=== PATIENT | female | born 1965 | race Caucasian/White ===

== ENCOUNTER 2019-06-20 10:28 | Emergency (ER) | payer BC ==
[~2019-06-20] VITALS: Ht 154.9 cm; Wt 71.9 kg
--- NOTE | 2019-06-20 10:51 | NUR ---
PT STATED SHE HAS HAD 3 DAYS OF WATERY STOOL. VOMITTING STARTED TODAY. STATES HAS TAKEN ABX 3 MONTHS AGO. STARTED ON NEW HTN, HDL, AND DIABETES MEDS. PATIENT IN BED. BEDSIDE. CALL LIGHT WITHIN REACH
[2019-06-20] MEDS ORDERED: ONDANSETRON 2MG/ML, 2ML ONE (11:00)
[2019-06-20] MEDS ORDERED: SODIUM CHLORIDE 0.9% 1,000ML IVBOLUS ONE ×2 (11:00→13:00)
[2019-06-20] MEDS ORDERED: SODIUM CHLORIDE FLUSH 10ML SYR IVF ONE (11:00)
[2019-06-20] MEDS ORDERED: ONDANSETRON 2MG/ML, 2ML IVPush ONE (11:00)
[2019-06-20] MEDS ORDERED: INSU100V8 SQ (11:26)
[2019-06-20] MEDS ORDERED: METF500T17 PO (11:26)
[2019-06-20] MEDS ORDERED: LISI40TA PO (11:26)
[2019-06-20] MEDS ORDERED: DULA1.5P IM (11:26)
[2019-06-20 11:34] LABS: BASOPHILS % (AUTO) 0 % (0-1); EOSINOPHILS # (AUTO) 0.02 x10^3/uL (0-0.4); EOSINOPHILS % (AUTO) 0 % (1-7); LYMPHOCYTES # (AUTO) 1.77 x10^3/uL (1-3.4); LYMPHOCYTES % (AUTO) 18 % (22-44); MD NO; MEAN CORPUSCULAR HEMOGLOBIN 25.7 pg (27.0-34.8); MEAN CORPUSCULAR VOLUME 77.9 fL (80-100); MEAN PLATELET VOLUME 8.7 fL (7.4-10.4); MONOCYTES % (AUTO) 2 % (2-9); NEUTROPHILS # (AUTO) 7.75 x10^3/uL (1.8-6.8); NEUTROPHILS % (AUTO) 80 % (42-75); PLATELET COUNT 225 x10^3/uL (130-400); RED BLOOD COUNT 5.44 x10^6/uL (3.82-5.3); RED CELL DISTRIBUTION WIDTH 13.1 % (9.6-15.2)
[2019-06-20 11:46] LABS: ANION GAP 8 mmol/L (5-15); CALCIUM 9.6 mg/dL (8.5-10.1); CHLORIDE 109 mmol/L (98-107); CREATININE 1.08 mg/dL (0.55-1.02)
[2019-06-20 11:47] LABS: ALANINE AMINOTRANSFERASE 26 U/L (12-78); ALBUMIN 3.8 g/dL (3.4-5.0)
[2019-06-20 11:49] LABS: ALKALINE PHOSPHATASE 99 U/L (45-117); BILIRUBIN,TOTAL 0.3 mg/dL (0.2-1.0); TOTAL PROTEIN 8.5 g/dL (6.4-8.2)
--- NOTE | 2019-06-20 12:08 | NUR ---
NEED A STOOL SAMPLE. PT STATES SHE DOES NOT NEED TO USE THE RESTROOM FOR A STOOL SAMPLE. PT IS IN HOSPITAL BED. BEDSIDE.
[2019-06-20 13:07] VITALS: BP 136/78
== END 2019-06-20 13:25 | disposition home or self-care (01) ==
LOC: ED 11:15
DX: R11.2 Nausea with vomiting, unspecified (principal); R19.7 Diarrhea, unspecified; E86.0 Dehydration; E86.9 Volume depletion, unspecified; I10 Essential (primary) hypertension; E11.9 Type 2 diabetes mellitus without complications; E78.00 Pure hypercholesterolemia, unspecified
CPT/HCPCS: 36415; 80053; 82962; 83690; 85025; 93005; 96361; 96374; 99284; J2405; J7030

== ENCOUNTER 2019-06-24 03:34 | Inpatient (IN) | payer BC ==
[~2019-06-24] VITALS: Ht 154.9 cm; Wt 68.3 kg
[~2019-06-24 03:34] MED LIST: DULA1.5P IM; INSU100V8 SQ; LISI40TA PO; METF500T17 PO
[2019-06-24] MEDS ORDERED: SODIUM CHLORIDE 0.9% 1,000 ML IV ONE (03:38)
--- NOTE | 2019-06-24 03:52 | NUR ---
angélica schreiber with c/o vomiting blood was seen here saturday for same
[2019-06-24] MEDS ORDERED: PANTOPRAZOLE 40 MG IV ONE (03:55)
[2019-06-24] MEDS ORDERED: ONDANSETRON 2MG/ML, 2ML ONE (03:55)
[2019-06-24] MEDS ORDERED: PROMETHAZINE 25 MG/ML, 1ML ONE (03:56)
[2019-06-24] MEDS ORDERED: SODIUM CHLORIDE FLUSH 10ML SYR IVF ONE (04:00)
[2019-06-24] MEDS ORDERED: ONDANSETRON 2MG/ML, 2ML IVPush ONE (04:00)
[2019-06-24] MEDS ORDERED: PROMETHAZINE 25 MG/ML, 1ML IM ONE (04:00)
[2019-06-24] MEDS ORDERED: PANTOPRAZOLE 40 MG IV IVPush ONE (04:00)
[2019-06-24] MEDS: PANTOPRAZOLE 80 MG in SODIUM CHLORIDE 0.9% 100 ML IV SCH ×3 (04:21→21:51)
[2019-06-24 04:27] LABS: BASOPHILS # (AUTO) 0.03 x10^3/uL (0-0.1); BASOPHILS % (AUTO) 0 % (0-1); EOSINOPHILS % (AUTO) 0 % (1-7); LYMPHOCYTES # (AUTO) 1.28 x10^3/uL (1-3.4); LYMPHOCYTES % (AUTO) 9 % (22-44); MD NO; MEAN CORPUSCULAR HEMOGLOBIN 25.4 pg (27.0-34.8); MEAN CORPUSCULAR HGB CONC 32.4 g/dL (32.4-35.8); MEAN CORPUSCULAR VOLUME 78.4 fL (80-100); MEAN PLATELET VOLUME 8.7 fL (7.4-10.4); MONOCYTES # (AUTO) 0.36 x10^3/uL (0.2-0.8); MONOCYTES % (AUTO) 3 % (2-9); NEUTROPHILS # (AUTO) 11.97 x10^3/uL (1.8-6.8); NEUTROPHILS % (AUTO) 88 % (42-75); PLATELET COUNT 211 x10^3/uL (130-400); RED BLOOD COUNT 5.64 x10^6/uL (3.82-5.3); RED CELL DISTRIBUTION WIDTH 13.4 % (9.6-15.2)
[2019-06-24 04:37] LABS: ALANINE AMINOTRANSFERASE 25 U/L (12-78); ALBUMIN 3.7 g/dL (3.4-5.0); ANION GAP 18 mmol/L (5-15); CALCIUM 9.9 mg/dL (8.5-10.1); CHLORIDE 103 mmol/L (98-107); CREATININE 1.05 mg/dL (0.55-1.02)
[2019-06-24 04:38] LABS: INTERNATIONAL NORMALIZED RATIO 1.11 (0.93-1.1); PROTHROMBIN TIME 11.6 Seconds (9.6-11.5)
[2019-06-24 04:39] LABS: ALKALINE PHOSPHATASE 97 U/L (45-117); TOTAL PROTEIN 8.5 g/dL (6.4-8.2)
[2019-06-24] MEDS ORDERED: METOCLOPRAMIDE 5 MG/ML, 2ML IVPush ONE (05:00)
[2019-06-24] MEDS ORDERED: METOCLOPRAMIDE 5 MG/ML, 2ML ONE (05:09)
--- NOTE | 2019-06-24 05:17 | NUR ---
UNABLE TO USE BR
--- NOTE | 2019-06-24 05:17 | NUR ---
PT UP TO BSC AT THIS TIME
--- NOTE | 2019-06-24 05:19 | NUR ---
PT CONTINUES TO DRY HEAVE AND BRING UP DARK BROWN EMISIS
--- NOTE | 2019-06-24 05:27 | NUR ---
pt to ct at this time
[2019-06-24] MEDS ORDERED: OMNIPAQUE 350 MG/ML, 100ML BOTTLE ONE (05:43)
--- NOTE | 2019-06-24 06:08 | NUR ---
pt resting comfortably at this time
--- NOTE | 2019-06-24 06:32 | NUR ---
report to daron awaiting ct read for admit to floor
[2019-06-24 07:17] VITALS: BP 151/83
[2019-06-24] MEDS ORDERED: MAGNESIUM SULFATE 3 GM in SODIUM CHLORIDE 0.9% 100 ML IV ONE (09:30)
[2019-06-24] MEDS ORDERED: morphine SULFATE 10 MG/ML, 1ML IVPush PRN (10:30)
[2019-06-24] MEDS ORDERED: hydrALAzine 20 MG/ML, 1ML IVPush PRN (10:30)
[2019-06-24 10:33] LABS: LDL/HDL RATIO 3.4 (0.5-3.0)
[2019-06-24] MEDS: SODIUM CHLORIDE 0.9% 1,000 ML IV SCH (12:34)
[2019-06-24] MEDS: CEFTRIAXONE PMX 2GM/50ML 50 ML IV SCH (12:34)
[2019-06-24] MEDS: ONDANSETRON 2MG/ML, 2ML IVPush PRN ×2 (12:35→19:15)
[2019-06-24] MEDS: PANTOPRAZOLE 40 MG IV IVPush SCH ×2 (12:35→21:36)
[2019-06-24 12:36] LABS: HEMOGLOBIN A1C 11.2 % (4.2-6.3)
[2019-06-24] MEDS: LISINOPRIL 40 MG TABLET PO SCH (12:47)
[2019-06-24] MEDS: METRONIDAZOLE PMX 500MG/100ML 100 ML IV SCH ×2 (14:00→21:36)
[2019-06-24] MEDS: INSULIN LISPRO 100 UNITS/ML, PEN SQ-INSULIN SCH ×3 (14:01→21:36)
[2019-06-24 14:15] VITALS: BP 141/87
[2019-06-24 19:04] VITALS: BP 151/91
[2019-06-24] MEDS: PROMETHAZINE 25 MG/ML, 1ML IM PRN (21:37)
[2019-06-25] MEDS: SODIUM CHLORIDE 0.9% 1,000 ML IV SCH ×2 (00:06→08:56)
[2019-06-25 00:41] VITALS: BP 161/97
[2019-06-25 02:47] LABS: CLOSTRIDIUM DIFFICILE ANTIGEN POSITIVE; CLOSTRIDIUM DIFFICILE TOXIN NEGATIVE (Negative)
[2019-06-25] MEDS: ONDANSETRON 2MG/ML, 2ML IVPush PRN ×3 (04:55→22:29)
[2019-06-25 05:14] LABS: BASOPHILS # (AUTO) 0.06 x10^3/uL (0-0.1); BASOPHILS % (AUTO) 0 % (0-1); EOSINOPHILS # (AUTO) 0.15 x10^3/uL (0-0.4); EOSINOPHILS % (AUTO) 1 % (1-7); LYMPHOCYTES # (AUTO) 2.05 x10^3/uL (1-3.4); LYMPHOCYTES % (AUTO) 15 % (22-44); MD NO; MEAN CORPUSCULAR HEMOGLOBIN 25.8 pg (27.0-34.8); MEAN CORPUSCULAR HGB CONC 32.4 g/dL (32.4-35.8); MEAN CORPUSCULAR VOLUME 79.6 fL (80-100); MEAN PLATELET VOLUME 8.9 fL (7.4-10.4); MONOCYTES # (AUTO) 0.65 x10^3/uL (0.2-0.8); MONOCYTES % (AUTO) 5 % (2-9); NEUTROPHILS # (AUTO) 10.39 x10^3/uL (1.8-6.8); NEUTROPHILS % (AUTO) 78 % (42-75); PLATELET COUNT 199 x10^3/uL (130-400); RED BLOOD COUNT 4.72 x10^6/uL (3.82-5.3); RED CELL DISTRIBUTION WIDTH 13.1 % (9.6-15.2)
[2019-06-25 05:16] LABS: ALBUMIN 2.9 g/dL (3.4-5.0); ANION GAP 8 mmol/L (5-15); CALCIUM 8.9 mg/dL (8.5-10.1); CHLORIDE 109 mmol/L (98-107)
[2019-06-25 05:24] LABS: ALANINE AMINOTRANSFERASE 17 U/L (12-78); ALKALINE PHOSPHATASE 79 U/L (45-117); BILIRUBIN,TOTAL 0.7 mg/dL (0.2-1.0); CHOL/HDL RATIO 3.7; CHOLESTEROL, TOTAL 176 mg/dL (140-239); CREATININE 0.66 mg/dL (0.55-1.02); HDL CHOL % 27 % (28-40); HDL CHOLESTEROL (DIRECT) 47 mg/dL (40-60); LDL CHOLESTEROL,CALCULATED 106 mg/dL (54-169); LDL/HDL RATIO 2.3 (0.5-3.0); TOTAL PROTEIN 7.1 g/dL (6.4-8.2); TRIGLYCERIDES 114 mg/dL (50-200); VLDL CHOLESTEROL 23 mg/dL (0-25)
[2019-06-25 05:29] LABS: MICROSCOPIC AUTO
[2019-06-25 05:37] LABS: CULTURE INDICATED? YES
[2019-06-25] MEDS: METRONIDAZOLE PMX 500MG/100ML 100 ML IV SCH ×3 (06:17→22:34)
[2019-06-25] MEDS: INSULIN LISPRO 100 UNITS/ML, PEN SQ-INSULIN SCH ×5 (07:00→21:00)
[2019-06-25] MEDS ORDERED: POTASSIUM PHOSPHATE 44 MEQ in SODIUM CHLORIDE 0.9% 500 ML IV ONE (08:30)
[2019-06-25] MEDS: PANTOPRAZOLE 80 MG in SODIUM CHLORIDE 0.9% 100 ML IV SCH (08:44)
[2019-06-25] MEDS: PROMETHAZINE 25 MG/ML, 1ML IM PRN (08:56)
[2019-06-25] MEDS: PANTOPRAZOLE 40 MG IV IVPush SCH ×2 (08:56→22:35)
[2019-06-25] MEDS: LISINOPRIL 40 MG TABLET PO SCH (08:57)
[2019-06-25 09:11] VITALS: BP 171/100
[2019-06-25 10:25] LABS: HEMOGLOBIN A1C 10.8 % (4.2-6.3)
[2019-06-25] MEDS: CEFTRIAXONE PMX 2GM/50ML 50 ML IV SCH (11:20)
[2019-06-25] MEDS ORDERED: LORazepam 2 MG/ML, 1ML IVPush ONE (12:00)
[2019-06-25 13:43] VITALS: BP 137/85
[2019-06-25 18:51] VITALS: BP 144/88
[2019-06-25] MEDS: INSULIN GLARGINE 100 UNITS/ML, PEN SQ-INSULIN SCH (21:19)
[2019-06-26 01:37] VITALS: BP 148/85
[2019-06-26] MEDS: METOCLOPRAMIDE 5 MG/ML, 2ML IVPush PRN ×2 (03:08→10:48)
[2019-06-26] MEDS: ONDANSETRON 2MG/ML, 2ML IVPush PRN (04:42)
[2019-06-26 05:51] LABS: BASOPHILS # (AUTO) 0.04 x10^3/uL (0-0.1); BASOPHILS % (AUTO) 0 % (0-1); EOSINOPHILS # (AUTO) 0.11 x10^3/uL (0-0.4); EOSINOPHILS % (AUTO) 1 % (1-7); LYMPHOCYTES # (AUTO) 2.01 x10^3/uL (1-3.4); LYMPHOCYTES % (AUTO) 17 % (22-44); MD NO; MEAN CORPUSCULAR HEMOGLOBIN 25.5 pg (27.0-34.8); MEAN CORPUSCULAR HGB CONC 31.8 g/dL (32.4-35.8); MEAN CORPUSCULAR VOLUME 80.1 fL (80-100); MONOCYTES # (AUTO) 0.53 x10^3/uL (0.2-0.8); MONOCYTES % (AUTO) 5 % (2-9); NEUTROPHILS # (AUTO) 9.11 x10^3/uL (1.8-6.8); NEUTROPHILS % (AUTO) 77 % (42-75); PLATELET COUNT 202 x10^3/uL (130-400); RED CELL DISTRIBUTION WIDTH 13.2 % (9.6-15.2)
[2019-06-26 06:00] LABS: ANION GAP 10 mmol/L (5-15); CALCIUM 8.8 mg/dL (8.5-10.1); CHLORIDE 107 mmol/L (98-107); CREATININE 0.56 mg/dL (0.55-1.02)
[2019-06-26] MEDS: METRONIDAZOLE PMX 500MG/100ML 100 ML IV SCH ×3 (06:18→22:12)
[2019-06-26] MEDS: INSULIN LISPRO 100 UNITS/ML, PEN SQ-INSULIN SCH ×4 (07:00→21:00)
[2019-06-26 07:31] VITALS: BP 156/90
[2019-06-26] MEDS: LISINOPRIL 40 MG TABLET PO SCH (07:50)
[2019-06-26] MEDS: PANTOPRAZOLE 40 MG IV IVPush SCH ×2 (07:50→20:31)
[2019-06-26] MEDS ORDERED: POTASSIUM CHLORIDE 20 MEQ TAB.ER.PRT PO ONE (09:30)
[2019-06-26] MEDS: CEFTRIAXONE PMX 2GM/50ML 50 ML IV SCH (10:48)
[2019-06-26] MEDS: SODIUM CHLORIDE 0.9% 1,000 ML IV SCH (10:49)
[2019-06-26] MEDS ORDERED: POTASSIUM PHOSPHATE 22 MEQ in SODIUM CHLORIDE 0.9% 250 ML IV ONE (11:30)
[2019-06-26] MEDS ORDERED: MAGNESIUM SULFATE PMX 2GM/50ML 50 ML IV ONE (11:30)
[2019-06-26] MEDS ORDERED: PROMETHAZINE 12.5 MG SUPP PR PRN (11:30)
[2019-06-26] MEDS: METOCLOPRAMIDE 5 MG/ML, 2ML IVPush SCH ×3 (11:30→20:31)
[2019-06-26] MEDS ORDERED: POTASSIUM CHLORIDE 40 MEQ in SODIUM CHLORIDE 0.9% 500 ML IV ONE (12:00)
[2019-06-26 13:00] VITALS: BP 165/96
[2019-06-26 19:36] VITALS: BP 158/95
[2019-06-26] MEDS: INSULIN GLARGINE 100 UNITS/ML, PEN SQ-INSULIN SCH (20:32)
[2019-06-27 01:42] VITALS: BP 162/95
[2019-06-27] MEDS: METOCLOPRAMIDE 5 MG/ML, 2ML IVPush SCH ×4 (02:35→22:23)
[2019-06-27] MEDS: METRONIDAZOLE PMX 500MG/100ML 100 ML IV SCH ×3 (05:36→22:23)
[2019-06-27 06:03] LABS: BASOPHILS # (AUTO) 0.05 x10^3/uL (0-0.1); BASOPHILS % (AUTO) 1 % (0-1); EOSINOPHILS # (AUTO) 0.12 x10^3/uL (0-0.4); EOSINOPHILS % (AUTO) 1 % (1-7); LYMPHOCYTES # (AUTO) 2.26 x10^3/uL (1-3.4); LYMPHOCYTES % (AUTO) 22 % (22-44); MD NO; MEAN CORPUSCULAR HEMOGLOBIN 25.5 pg (27.0-34.8); MEAN CORPUSCULAR HGB CONC 31.9 g/dL (32.4-35.8); MEAN PLATELET VOLUME 8.8 fL (7.4-10.4); MONOCYTES # (AUTO) 0.57 x10^3/uL (0.2-0.8); MONOCYTES % (AUTO) 6 % (2-9); NEUTROPHILS # (AUTO) 7.22 x10^3/uL (1.8-6.8); NEUTROPHILS % (AUTO) 71 % (42-75); PLATELET COUNT 216 x10^3/uL (130-400); RED BLOOD COUNT 4.71 x10^6/uL (3.82-5.3); RED CELL DISTRIBUTION WIDTH 13.5 % (9.6-15.2)
[2019-06-27 06:15] LABS: ALANINE AMINOTRANSFERASE 15 U/L (12-78); ALBUMIN 2.5 g/dL (3.4-5.0); ANION GAP 7 mmol/L (5-15); CALCIUM 8.7 mg/dL (8.5-10.1); CHLORIDE 105 mmol/L (98-107); CREATININE 0.46 mg/dL (0.55-1.02)
[2019-06-27 06:17] LABS: ALKALINE PHOSPHATASE 65 U/L (45-117); BILIRUBIN,TOTAL 0.4 mg/dL (0.2-1.0); TOTAL PROTEIN 6.9 g/dL (6.4-8.2)
[2019-06-27] MEDS: INSULIN LISPRO 100 UNITS/ML, PEN SQ-INSULIN SCH ×4 (07:00→21:00)
[2019-06-27] MEDS: PANTOPRAZOLE 40 MG IV IVPush SCH ×2 (07:28→22:23)
[2019-06-27] MEDS: LISINOPRIL 40 MG TABLET PO SCH (07:28)
[2019-06-27] MEDS: SODIUM CHLORIDE 0.9% 1,000 ML IV SCH ×2 (07:28→22:23)
[2019-06-27 07:31] VITALS: BP 152/95
[2019-06-27 07:44] VITALS: BP 150/90
[2019-06-27] MEDS: CEFTRIAXONE PMX 2GM/50ML 50 ML IV SCH (10:52)
[2019-06-27] MEDS ORDERED: MAGNESIUM SULFATE PMX 2GM/50ML 50 ML IV ONE (11:00)
[2019-06-27 12:42] VITALS: BP 157/91
[2019-06-27 20:02] VITALS: BP 150/97
[2019-06-27] MEDS: INSULIN GLARGINE 100 UNITS/ML, PEN SQ-INSULIN SCH (22:24)
[2019-06-28 02:00] VITALS: BP 158/99
[2019-06-28] MEDS: METOCLOPRAMIDE 5 MG/ML, 2ML IVPush SCH ×4 (04:52→21:39)
[2019-06-28] MEDS: METRONIDAZOLE PMX 500MG/100ML 100 ML IV SCH ×3 (05:58→21:47)
[2019-06-28 06:55] VITALS: BP 168/103
[2019-06-28] MEDS: INSULIN LISPRO 100 UNITS/ML, PEN SQ-INSULIN SCH ×4 (07:00→21:40)
[2019-06-28] MEDS: LISINOPRIL 40 MG TABLET PO SCH (08:06)
[2019-06-28] MEDS: AMLODIPINE 5 MG TABLET PO SCH ×2 (08:06→21:38)
[2019-06-28] MEDS: PANTOPRAZOLE 40 MG IV IVPush SCH ×2 (08:06→21:39)
[2019-06-28 09:00] VITALS: BP 157/94
[2019-06-28] MEDS: CEFTRIAXONE PMX 2GM/50ML 50 ML IV SCH (11:19)
[2019-06-28 13:10] VITALS: BP 148/88
[2019-06-28] MEDS: SODIUM CHLORIDE 0.9% 1,000 ML IV SCH (15:02)
[2019-06-28 19:15] VITALS: BP 143/85
[2019-06-28] MEDS: INSULIN GLARGINE 100 UNITS/ML, PEN SQ-INSULIN SCH (21:40)
[2019-06-29 00:15] VITALS: BP 149/91
[2019-06-29] MEDS: ONDANSETRON 2MG/ML, 2ML IVPush PRN (00:53)
[2019-06-29] MEDS: SODIUM CHLORIDE 0.9% 1,000 ML IV SCH (06:03)
[2019-06-29] MEDS: METOCLOPRAMIDE 5 MG/ML, 2ML IVPush SCH (06:03)
[2019-06-29] MEDS: METRONIDAZOLE PMX 500MG/100ML 100 ML IV SCH ×2 (06:03→14:12)
[2019-06-29 06:50] VITALS: BP 169/104
[2019-06-29] MEDS: INSULIN LISPRO 100 UNITS/ML, PEN SQ-INSULIN SCH ×3 (07:00→17:37)
[2019-06-29] MEDS: LISINOPRIL 40 MG TABLET PO SCH (08:11)
[2019-06-29] MEDS: AMLODIPINE 5 MG TABLET PO SCH (08:11)
[2019-06-29] MEDS: PANTOPRAZOLE 40 MG IV IVPush SCH (08:11)
[2019-06-29] MEDS: CEFTRIAXONE PMX 2GM/50ML 50 ML IV SCH (11:17)
[2019-06-29 12:42] VITALS: BP 161/92
[2019-06-29] MEDS ORDERED: PANTOPROZOLE 40MG TABLET PO SCH (21:00)
== END 2019-06-29 19:10 | disposition home or self-care (01) | DRG 871 ==
LOC: ED 04:58 → EDIP 05:09 → 3N 07:06
PROVIDERS: ADMIT Family Medicine; ATTEND Family Medicine
DX: A41.9 Sepsis, unspecified organism (principal); K22.6 Gastro-esophageal laceration-hemorrhage syndrome; K29.01 Acute gastritis with bleeding; N17.0 Acute kidney failure with tubular necrosis; A04.72 Enterocolitis due to Clostridium difficile, not specified as recurrent; D68.0 Von Willebrand disease; E11.43 Type 2 diabetes mellitus with diabetic autonomic (poly)neuropathy; E11.65 Type 2 diabetes mellitus with hyperglycemia; E78.00 Pure hypercholesterolemia, unspecified; E78.5 Hyperlipidemia, unspecified; E83.39 Other disorders of phosphorus metabolism; E83.42 Hypomagnesemia; E86.0 Dehydration; E87.6 Hypokalemia; I10 Essential (primary) hypertension; K31.84 Gastroparesis; K76.0 Fatty (change of) liver, not elsewhere classified; N20.0 Calculus of kidney; Z22.1 Carrier of other intestinal infectious diseases; Z79.4 Long term (current) use of insulin; Z87.891 Personal history of nicotine dependence; Z88.1 Allergy status to other antibiotic agents; Z88.8 Allergy status to other drugs, medicaments and biological substances; Z79.899 Other long term (current) drug therapy
CPT/HCPCS: 36415; 71045; 71250; 74177; 80048; 80053; 80061; 80307; 81001; 82962; 83036; 83690; 83735; 84100; 84443; 85025; 85610; 85730; 86850; 86900; 87040; 87046; 87086; 87324; 87427; 87493; 93005; 99285; G0378; J0696; J2405; J2550; J3475; J3480; Q9967; C9113; J1815; J2060; J2270; J2765; J7030; J7040; J7050

== ENCOUNTER 2019-07-02 07:37 | Inpatient (IN) | payer BC ==
[~2019-07-02] VITALS: Ht 154.9 cm; Wt 70.1 kg
[2019-07-02] MEDS ORDERED: FAMOTIDINE 20 MG/2 ML ONE (08:19)
[2019-07-02] MEDS ORDERED: ONDANSETRON 2MG/ML, 2ML ONE ×2 (08:19→14:26)
[2019-07-02] MEDS ORDERED: ONDANSETRON 2MG/ML, 2ML IVPush ONE (08:30)
[2019-07-02] MEDS ORDERED: FAMOTIDINE 20 MG/2 ML IV ONE (08:30)
[2019-07-02] MEDS ORDERED: SODIUM CHLORIDE 0.9% 1,000ML IVBOLUS ONE (08:30)
[2019-07-02 08:32] LABS: MEAN CORPUSCULAR HEMOGLOBIN 25.2 pg (27.0-34.8); MEAN CORPUSCULAR HGB CONC 32.4 g/dL (32.4-35.8); MEAN CORPUSCULAR VOLUME 77.7 fL (80-100); MEAN PLATELET VOLUME 8.6 fL (7.4-10.4); PLATELET COUNT 355 x10^3/uL (130-400); RED BLOOD COUNT 6.01 x10^6/uL (3.82-5.3); RED CELL DISTRIBUTION WIDTH 13.3 % (9.6-15.2)
[2019-07-02 08:39] LABS: PH, VENOUS 7.465 pH (7.320-7.420)
[2019-07-02 08:39] LABS: ALBUMIN 2.9 g/dL (3.4-5.0); CALCIUM 9.3 mg/dL (8.5-10.1); CHLORIDE 95 mmol/L (98-107)
[2019-07-02 08:40] LABS: FIO2 ROOM AIR %
[2019-07-02 08:42] LABS: ALANINE AMINOTRANSFERASE 18 U/L (12-78); ALKALINE PHOSPHATASE 88 U/L (45-117); BILIRUBIN,TOTAL 0.4 mg/dL (0.2-1.0); CREATININE 0.73 mg/dL (0.55-1.02); TOTAL PROTEIN 7.9 g/dL (6.4-8.2)
[2019-07-02 08:47] LABS: ANION GAP 15 mmol/L (5-15)
--- NOTE | 2019-07-02 08:54 | NUR ---
REPORT FROM MAKEDA.
[2019-07-02 09:05] LABS: BASOPHILS # (AUTO) 0.02 x10^3/uL (0-0.1); BASOPHILS % (AUTO) 0 % (0-1); EOSINOPHILS # (AUTO) 0.05 x10^3/uL (0-0.4); EOSINOPHILS % (AUTO) 1 % (1-7); LYMPHOCYTES # (AUTO) 1.36 x10^3/uL (1-3.4); LYMPHOCYTES % (AUTO) 15 % (22-44); MD SCAN; MONOCYTES # (AUTO) 0.27 x10^3/uL (0.2-0.8); MONOCYTES % (AUTO) 3 % (2-9); NEUTROPHILS # (AUTO) 7.44 x10^3/uL (1.8-6.8); NEUTROPHILS % (AUTO) 81 % (42-75)
[2019-07-02] MEDS ORDERED: POTASSIUM CHLORIDE 40 MEQ in SODIUM CHLORIDE 0.9% 1,000 ML IV ONE (09:07)
[2019-07-02] MEDS ORDERED: POTASSIUM CHLORIDE 20 MEQ TAB.ER.PRT ONE (09:08)
--- NOTE | 2019-07-02 09:17 | NUR ---
CRITICAL VALUE. K 2.8. MD TATE AWARE. POC DISCUSSED W PT W AT BEDSIDE, AGREES TO ADMIT, MEDICATED PER ORDERS. FIBERGLASS LAMINATOR APPLIED. PT BIJAL BUTTERFIELD. Addendum: 07/02/19 at 1317 by MARIA A CORRECTING NOTE ERROR, CRITICAL K 2.4
[2019-07-02] MEDS ORDERED: NS + 40MEQ KCL 1,000 ML IV ONE (09:22)
[2019-07-02 09:26] LABS: ACETONE, SERUM Large (80mg/dL) mg/dL (Negative)
[2019-07-02] MEDS ORDERED: POTASSIUM CHLORIDE 20 MEQ TAB.ER.PRT PO ONE (09:30)
[2019-07-02] MEDS: SODIUM CHLORIDE 0.9% 1,000 ML IV SCH ×4 (09:50→21:50)
[2019-07-02] MEDS ORDERED: GLUCAGON 1 MG IM PRN (10:00)
[2019-07-02] MEDS ORDERED: LABETALOL 5MG/ML, 20ML IVPush PRN (10:00)
[2019-07-02] MEDS: LISINOPRIL 40 MG TABLET PO SCH (10:00)
[2019-07-02] MEDS ORDERED: SODIUM CHLORIDE FLUSH 10ML SYR IVF PRN (10:00)
[2019-07-02] MEDS ORDERED: DEXTROSE 4 GM TAB.CHEW PO PRN (10:00)
[2019-07-02] MEDS ORDERED: ONDANSETRON 2MG/ML, 2ML IVPush PRN ×2 (10:00→14:30)
[2019-07-02] MEDS ORDERED: morphine SULFATE 10 MG/ML, 1ML IVPush PRN (10:00)
[2019-07-02] MEDS ORDERED: PROMETHAZINE 25 MG/ML, 1ML IM PRN (10:00)
[2019-07-02] MEDS ORDERED: ACETAMINOPHEN 325 MG TABLET PO PRN (10:00)
[2019-07-02] MEDS ORDERED: POTASSIUM CHLORIDE 40 MEQ in SODIUM CHLORIDE 0.9% 500 ML IV ONE (10:00)
[2019-07-02] MEDS ORDERED: DEXTROSE 50%, 50ML SYRINGE IVPush PRN (10:00)
[2019-07-02] MEDS: SODIUM CHLORIDE FLUSH 10ML SYR IVF SCH ×2 (10:00→20:46)
[2019-07-02] MEDS ORDERED: LISINOPRIL 20 MG TABLET ONE (10:21)
[2019-07-02] MEDS ORDERED: PANTOPRAZOLE 40 MG IV ONE (10:21)
[2019-07-02] MEDS ORDERED: METOCLOPRAMIDE 5 MG/ML, 2ML ONE ×2 (10:22→16:40)
[2019-07-02] MEDS: METOCLOPRAMIDE 5 MG/ML, 2ML IVPush PRN ×2 (10:28→16:44)
[2019-07-02] MEDS: PANTOPRAZOLE 40 MG IV IVPush SCH ×2 (10:28→20:45)
--- NOTE | 2019-07-02 10:31 | NUR ---
MEDICATED FOR NAUSEA/VOMITING. PT STILL VOMITING. MEDICATED PER OTHER ORDERS.
[2019-07-02 10:41] LABS: INTERNATIONAL NORMALIZED RATIO 1.32 (0.93-1.1); PROTHROMBIN TIME 13.7 Seconds (9.6-11.5)
[2019-07-02] MEDS: INSULIN LISPRO 100 UNITS/ML, PEN SQ-INSULIN SCH ×3 (11:34→20:45)
--- NOTE | 2019-07-02 11:57 | NUR ---
ASSISTED PT TO BATHROOM FOR UA. PT HAS RELIEF FROM VOMITING . UA SENT. VS STABLE. MEDICATED W INSULING FOR BG 279
[2019-07-02 12:20] LABS: MICROSCOPIC AUTO
[2019-07-02 12:27] LABS: CULTURE INDICATED? NO
--- NOTE | 2019-07-02 13:16 | NUR ---
PT SITTING UP IN GURNEY SLEEPING. VS STABLE. NO VOMITING AT THIS TIME
[2019-07-02] MEDS ORDERED: PROMETHAZINE 25 MG/ML, 1ML ONE (13:35)
--- NOTE | 2019-07-02 13:39 | NUR ---
MEDICATED FOR N/V. PT SITTING UP AND NOT IN DISTRESS. VS STABLE. FLUIDS INFUSING
--- NOTE | 2019-07-02 14:20 | NUR ---
CALLED SARAY Brooks CONCERNS OF CONTINUED N/V. OK TO ORDER ZOFRAN 4MG AND REPEAT PHENERGEN
--- NOTE | 2019-07-02 16:38 | NUR ---
PT AMBULATED TO BATHROOM SBA. PT NOT HAVIN ACTIVE DIARRHEA.
[2019-07-02] MEDS ORDERED: POTASSIUM CHLORIDE 20 MEQ TAB.ER.PRT PO SCH (17:00)
--- NOTE | 2019-07-02 17:00 | NUR ---
MEDICATED FOR NAUSEA. PT STATES REGLAN WORKS BEST. FLUIDS INFUSING. PT SITTING ON GURNEY. VS STABLE. WAITING FOR ROOM. NO OTHER NEEDS AT THIS TIME. BS 189. Addendum: 07/02/19 at 1701 by MARIA A BS 186
[2019-07-02 17:35] LABS: AMPHETAMINE SCREEN, URINE Negative (Negative); BARBITURATE SCREEN, URINE Negative (Negative); BENZODIAZEPINE SCREEN, URINE Negative (Negative); CANNABINOID SCREEN, URINE Negative (Negative); COCAINE SCREEN, URINE Negative (Negative); METHADONE SCREEN, URINE Negative (Negative); OPIATE SCREEN, URINE Negative (Negative)
[2019-07-02] MEDS ORDERED: METOPROLOL TARTRATE 25 MG TABLET ONE (17:39)
[2019-07-02] MEDS: METOPROLOL TARTRATE 25 MG TABLET PO SCH (17:42)
--- NOTE | 2019-07-02 17:44 | NUR ---
PT HR 145 [facility] AWARE. ORDERED METOPROLOL PO BID 25 MG, ONCE NOW, AND 1L NS AT 250ML/HR. PT A&OX4, SOMNOLENT. NO ACTIVE N/V
--- NOTE | 2019-07-02 17:49 | NUR ---
REPORT TO CHERYL
[2019-07-02] MEDS ORDERED: MAGNESIUM SULFATE PMX 2GM/50ML 50 ML IV ONE (19:00)
[2019-07-02 20:00] VITALS: BP 149/92
[2019-07-02] MEDS: INSULIN GLARGINE 100 UNITS/ML, PEN SQ-INSULIN SCH (21:08)
[2019-07-02 22:24] LABS: ANION GAP 9 mmol/L (5-15); CALCIUM 8.3 mg/dL (8.5-10.1); CHLORIDE 106 mmol/L (98-107); CREATININE 0.55 mg/dL (0.55-1.02)
[2019-07-03 00:45] VITALS: BP 168/99
[2019-07-03] MEDS: SODIUM CHLORIDE 0.9% 1,000 ML IV SCH ×3 (00:49→08:17)
[2019-07-03] MEDS: METOCLOPRAMIDE 5 MG/ML, 2ML IVPush PRN ×2 (00:56→07:07)
[2019-07-03] MEDS ORDERED: POTASSIUM CHLORIDE 40 MEQ in SODIUM CHLORIDE 0.9% 500 ML IV ONE ×2 (01:30→06:00)
[2019-07-03] MEDS: METOPROLOL TARTRATE 25 MG TABLET PO SCH (05:35)
[2019-07-03 06:35] LABS: ANION GAP 8 mmol/L (5-15); CHLORIDE 105 mmol/L (98-107)
[2019-07-03 08:04] VITALS: BP 165/102
[2019-07-03] MEDS: SODIUM CHLORIDE FLUSH 10ML SYR IVF SCH ×2 (08:23→22:13)
[2019-07-03] MEDS: PANTOPRAZOLE 40 MG IV IVPush SCH (08:35)
[2019-07-03] MEDS: CARVEDILOL 6.25 MG TABLET PO SCH ×2 (08:35→17:37)
[2019-07-03] MEDS: LACTOBACILLUS CHEW TABLET PO SCH ×5 (08:35→22:13)
[2019-07-03] MEDS: LISINOPRIL 40 MG TABLET PO SCH (08:35)
[2019-07-03] MEDS: INSULIN LISPRO 100 UNITS/ML, PEN SQ-INSULIN SCH ×4 (08:36→22:15)
[2019-07-03] MEDS ORDERED: hydrALAzine 20 MG/ML, 1ML IV PRN (10:00)
[2019-07-03] MEDS ORDERED: LABETALOL 5MG/ML, 20ML IV PRN (10:00)
[2019-07-03] MEDS ORDERED: HYDROmorphone 2 MG/ML, 1ML IVPush PRN (10:00)
[2019-07-03] MEDS ORDERED: ONDANSETRON 2MG/ML, 2ML IV PRN (10:00)
[2019-07-03] MEDS ORDERED: PROMETHAZINE 25 MG/ML, 1ML IV PRN (10:00)
[2019-07-03] MEDS ORDERED: MEPERIDINE/PF 25MG/ML,1ML IVPush PRN (10:00)
[2019-07-03] MEDS ORDERED: OXYcodone 5 MG/5 ML ORAL.SOL UDC PO PRN (10:00)
[2019-07-03] MEDS ORDERED: FENTANYL PF 100 MCG/2ML IV PRN (10:00)
[2019-07-03] MEDS ORDERED: FENTANYL PF 100 MCG/2ML ONE (10:34)
[2019-07-03] MEDS ORDERED: MIDAZOLAM 1 MG/ML, 2ML ONE (10:34)
[2019-07-03] MEDS ORDERED: PROPOFOL 10 MG/ML, 20ML ONE (11:08)
[2019-07-03] MEDS ORDERED: hydrALAzine 20 MG/ML, 1ML ONE (11:09)
[2019-07-03 12:13] VITALS: BP 133/78
[2019-07-03 13:43] LABS: TROPONIN I < 0.015 ng/mL (0.000-0.045)
[2019-07-03] MEDS: SUCRALFATE 1 GM/10 ML UDC PO SCH ×2 (16:39→22:23)
[2019-07-03] MEDS: OMEPRAZOLE 20 MG CAPSULE.DR PO SCH (16:39)
[2019-07-03 17:25] VITALS: BP 155/93
[2019-07-03 20:16] VITALS: BP 145/87
[2019-07-03] MEDS: INSULIN GLARGINE 100 UNITS/ML, PEN SQ-INSULIN SCH (22:15)
[2019-07-04 01:13] VITALS: BP 162/94
[2019-07-04] MEDS: SODIUM CHLORIDE 0.9% 1,000 ML IV SCH (01:17)
[2019-07-04 04:49] LABS: BASOPHILS # (AUTO) 0.02 x10^3/uL (0-0.1); BASOPHILS % (AUTO) 0 % (0-1); EOSINOPHILS # (AUTO) 0.14 x10^3/uL (0-0.4); EOSINOPHILS % (AUTO) 2 % (1-7); LYMPHOCYTES # (AUTO) 2.06 x10^3/uL (1-3.4); LYMPHOCYTES % (AUTO) 22 % (22-44); MD NO; MEAN CORPUSCULAR HEMOGLOBIN 25.8 pg (27.0-34.8); MEAN CORPUSCULAR HGB CONC 32.5 g/dL (32.4-35.8); MEAN CORPUSCULAR VOLUME 79.6 fL (80-100); MEAN PLATELET VOLUME 8.8 fL (7.4-10.4); MONOCYTES # (AUTO) 0.46 x10^3/uL (0.2-0.8); MONOCYTES % (AUTO) 5 % (2-9); NEUTROPHILS % (AUTO) 71 % (42-75); PLATELET COUNT 341 x10^3/uL (130-400); RED BLOOD COUNT 5.42 x10^6/uL (3.82-5.3); RED CELL DISTRIBUTION WIDTH 13.5 % (9.6-15.2)
[2019-07-04 04:57] LABS: ANION GAP 9 mmol/L (5-15); CALCIUM 8.7 mg/dL (8.5-10.1); CHLORIDE 105 mmol/L (98-107); CREATININE 0.51 mg/dL (0.55-1.02)
[2019-07-04] MEDS: CARVEDILOL 6.25 MG TABLET PO SCH ×2 (06:04→18:30)
[2019-07-04 06:14] VITALS: BP 181/106
[2019-07-04] MEDS: hydrALAzine 20 MG/ML, 1ML IVPush PRN ×2 (06:16→19:35)
[2019-07-04] MEDS ORDERED: MAGNESIUM SULFATE PMX 4GM/100M 100 ML IV ONE (08:00)
[2019-07-04 08:03] VITALS: BP 164/105
[2019-07-04] MEDS: INSULIN LISPRO 100 UNITS/ML, PEN SQ-INSULIN SCH ×4 (08:26→20:25)
[2019-07-04] MEDS: SUCRALFATE 1 GM/10 ML UDC PO SCH ×4 (08:30→20:27)
[2019-07-04] MEDS: LISINOPRIL 40 MG TABLET PO SCH (10:10)
[2019-07-04] MEDS: SODIUM CHLORIDE FLUSH 10ML SYR IVF SCH ×2 (10:11→20:25)
[2019-07-04] MEDS: OMEPRAZOLE 20 MG CAPSULE.DR PO SCH ×3 (10:11→17:34)
[2019-07-04] MEDS: LACTOBACILLUS CHEW TABLET PO SCH ×4 (10:11→20:27)
[2019-07-04] MEDS: NS + 40MEQ KCL 1,000 ML IV SCH (14:07)
[2019-07-04 19:17] VITALS: BP 178/109
[2019-07-04 20:24] VITALS: BP 127/81
[2019-07-04] MEDS: INSULIN GLARGINE 100 UNITS/ML, PEN SQ-INSULIN SCH (20:26)
[2019-07-04] MEDS ORDERED: LORazepam 2 MG/ML, 1ML IVPush ONE (23:30)
[2019-07-05 00:06] VITALS: BP 120/80
[2019-07-05 05:47] LABS: CHLORIDE 106 mmol/L (98-107)
[2019-07-05 05:52] LABS: ANION GAP 7 mmol/L (5-15); CALCIUM 8.6 mg/dL (8.5-10.1); CREATININE 0.58 mg/dL (0.55-1.02)
[2019-07-05] MEDS: NS + 40MEQ KCL 1,000 ML IV SCH ×2 (05:56→22:16)
[2019-07-05] MEDS: CARVEDILOL 6.25 MG TABLET PO SCH ×2 (06:00→17:20)
[2019-07-05] MEDS: OMEPRAZOLE 20 MG CAPSULE.DR PO SCH ×2 (06:00→17:23)
[2019-07-05 07:38] VITALS: BP 149/91
[2019-07-05] MEDS: INSULIN LISPRO 100 UNITS/ML, PEN SQ-INSULIN SCH ×4 (08:16→20:16)
[2019-07-05] MEDS: SUCRALFATE 1 GM/10 ML UDC PO SCH ×4 (08:59→20:15)
[2019-07-05] MEDS: LACTOBACILLUS CHEW TABLET PO SCH ×3 (08:59→20:17)
[2019-07-05] MEDS: LISINOPRIL 40 MG TABLET PO SCH (08:59)
[2019-07-05] MEDS: SODIUM CHLORIDE FLUSH 10ML SYR IVF SCH ×2 (09:01→20:17)
[2019-07-05] MEDS ORDERED: METOCLOPRAMIDE 5 MG/ML, 2ML IVPush PRN (11:30)
[2019-07-05] MEDS: LORazepam 2 MG/ML, 1ML IVPush PRN ×2 (12:13→20:16)
[2019-07-05 12:58] VITALS: BP 138/97
[2019-07-05] MEDS: METOCLOPRAMIDE 5 MG/ML, 2ML IVPush SCH (17:20)
[2019-07-05 19:21] VITALS: BP 124/81
[2019-07-05] MEDS: INSULIN GLARGINE 100 UNITS/ML, PEN SQ-INSULIN SCH (20:16)
[2019-07-06 00:14] VITALS: BP 135/85
[2019-07-06] MEDS: METOCLOPRAMIDE 5 MG/ML, 2ML IVPush SCH ×4 (01:07→09:27)
[2019-07-06] MEDS: LORazepam 2 MG/ML, 1ML IVPush PRN (04:23)
[2019-07-06] MEDS: CARVEDILOL 6.25 MG TABLET PO SCH ×2 (05:39→17:04)
[2019-07-06] MEDS: OMEPRAZOLE 20 MG CAPSULE.DR PO SCH ×2 (05:39→17:04)
[2019-07-06 06:44] LABS: ANION GAP 3 mmol/L (5-15); CALCIUM 8.5 mg/dL (8.5-10.1); CHLORIDE 107 mmol/L (98-107); CREATININE 0.57 mg/dL (0.55-1.02)
[2019-07-06 06:53] LABS: HEMOGLOBIN A1C 10.1 % (4.2-6.3)
[2019-07-06 07:12] VITALS: BP 153/92
[2019-07-06] MEDS: SUCRALFATE 1 GM/10 ML UDC PO SCH ×4 (07:36→21:22)
[2019-07-06] MEDS: INSULIN LISPRO 100 UNITS/ML, PEN SQ-INSULIN SCH ×4 (07:39→21:23)
[2019-07-06] MEDS: LACTOBACILLUS CHEW TABLET PO SCH ×3 (08:39→21:22)
[2019-07-06] MEDS: LISINOPRIL 40 MG TABLET PO SCH (08:39)
[2019-07-06] MEDS: SODIUM CHLORIDE FLUSH 10ML SYR IVF SCH ×2 (09:03→21:23)
[2019-07-06] MEDS ORDERED: METOPROLOL 1 MG/ML, 5ML ONE (12:16)
[2019-07-06 12:25] VITALS: BP 158/102
[2019-07-06] MEDS ORDERED: METOPROLOL 1 MG/ML, 5ML IVPush SCH (12:30)
[2019-07-06] MEDS ORDERED: LORazepam 2 MG/ML, 1ML IVPush PRN (15:30)
[2019-07-06] MEDS ORDERED: HALOPERIDOL 5 MG/ML IM PRN (15:30)
[2019-07-06] MEDS ORDERED: POTASSIUM CHLORIDE 40 MEQ in SODIUM CHLORIDE 0.9% 500 ML IV ONE (15:30)
[2019-07-06] MEDS: NS + 40MEQ KCL 1,000 ML IV SCH (17:04)
[2019-07-06 20:05] VITALS: BP 124/79
[2019-07-06] MEDS: INSULIN GLARGINE 100 UNITS/ML, PEN SQ-INSULIN SCH (21:23)
[2019-07-07 02:44] VITALS: BP 145/91
[2019-07-07] MEDS: CARVEDILOL 6.25 MG TABLET PO SCH ×2 (05:53→17:36)
[2019-07-07] MEDS: OMEPRAZOLE 20 MG CAPSULE.DR PO SCH ×2 (05:53→16:04)
[2019-07-07 06:09] LABS: ANION GAP 4 mmol/L (5-15); CALCIUM 8.1 mg/dL (8.5-10.1); CHLORIDE 106 mmol/L (98-107); CREATININE 0.63 mg/dL (0.55-1.02)
[2019-07-07 07:16] VITALS: BP 116/79
[2019-07-07] MEDS ORDERED: POTASSIUM CHLORIDE 40 MEQ in SODIUM CHLORIDE 0.9% 500 ML IV ONE (08:00)
[2019-07-07] MEDS ORDERED: MAGNESIUM SULFATE PMX 4GM/100M 100 ML IV ONE (08:00)
[2019-07-07] MEDS: LISINOPRIL 40 MG TABLET PO SCH (09:02)
[2019-07-07] MEDS: LACTOBACILLUS CHEW TABLET PO SCH ×3 (09:02→19:57)
[2019-07-07] MEDS: SUCRALFATE 1 GM/10 ML UDC PO SCH ×4 (09:02→19:57)
[2019-07-07] MEDS: SODIUM CHLORIDE FLUSH 10ML SYR IVF SCH ×2 (09:02→19:58)
[2019-07-07] MEDS: INSULIN LISPRO 100 UNITS/ML, PEN SQ-INSULIN SCH ×4 (09:03→19:58)
[2019-07-07 12:13] VITALS: BP 130/83
[2019-07-07] MEDS: NS + 40MEQ KCL 1,000 ML IV SCH (15:11)
[2019-07-07 17:37] VITALS: BP 120/83
[2019-07-07] MEDS: INSULIN GLARGINE 100 UNITS/ML, PEN SQ-INSULIN SCH (19:58)
[2019-07-07 20:04] VITALS: BP 117/81
[2019-07-08 03:30] VITALS: BP 140/90
[2019-07-08] MEDS: OMEPRAZOLE 20 MG CAPSULE.DR PO SCH ×2 (05:59→16:37)
[2019-07-08] MEDS: CARVEDILOL 6.25 MG TABLET PO SCH ×2 (06:00→17:19)
[2019-07-08] MEDS: NS + 40MEQ KCL 1,000 ML IV SCH (06:00)
[2019-07-08 06:27] LABS: ANION GAP 5 mmol/L (5-15); CALCIUM 8.3 mg/dL (8.5-10.1); CHLORIDE 106 mmol/L (98-107); CREATININE 0.54 mg/dL (0.55-1.02)
[2019-07-08 08:01] VITALS: BP 151/97
[2019-07-08] MEDS: SUCRALFATE 1 GM/10 ML UDC PO SCH ×4 (08:03→20:36)
[2019-07-08] MEDS: LISINOPRIL 40 MG TABLET PO SCH (08:03)
[2019-07-08] MEDS: LACTOBACILLUS CHEW TABLET PO SCH ×3 (08:03→20:36)
[2019-07-08] MEDS: INSULIN LISPRO 100 UNITS/ML, PEN SQ-INSULIN SCH ×4 (08:04→20:29)
[2019-07-08] MEDS: SODIUM CHLORIDE FLUSH 10ML SYR IVF SCH ×2 (08:06→20:37)
[2019-07-08 14:15] VITALS: BP 128/83
[2019-07-08 16:44] VITALS: BP 139/89
[2019-07-08 16:56] LABS: CLOSTRIDIUM DIFFICILE ANTIGEN NEGATIVE; CLOSTRIDIUM DIFFICILE TOXIN NEGATIVE (Negative)
[2019-07-08] MEDS: DIPHENOXYLATE/ATROPINE TABLET PO PRN (17:18)
[2019-07-08 20:23] VITALS: BP 129/85
[2019-07-08] MEDS: INSULIN GLARGINE 100 UNITS/ML, PEN SQ-INSULIN SCH (20:37)
[2019-07-09 01:40] VITALS: BP 124/83
[2019-07-09] MEDS: OMEPRAZOLE 20 MG CAPSULE.DR PO SCH ×2 (05:32→15:59)
[2019-07-09] MEDS: CARVEDILOL 6.25 MG TABLET PO SCH ×2 (05:32→17:47)
[2019-07-09] MEDS: INSULIN LISPRO 100 UNITS/ML, PEN SQ-INSULIN SCH ×3 (07:00→16:30)
[2019-07-09 07:38] VITALS: BP 148/102
[2019-07-09] MEDS: SUCRALFATE 1 GM/10 ML UDC PO SCH ×3 (07:43→15:58)
[2019-07-09] MEDS: LISINOPRIL 40 MG TABLET PO SCH (07:43)
[2019-07-09] MEDS: SODIUM CHLORIDE FLUSH 10ML SYR IVF SCH (07:43)
[2019-07-09] MEDS: LACTOBACILLUS CHEW TABLET PO SCH ×2 (07:43→15:59)
[2019-07-09] MEDS ORDERED: CARV6.2512 PO (08:50)
[2019-07-09] MEDS ORDERED: ONDA4TAB7 PO (08:50)
[2019-07-09] MEDS ORDERED: SUCR1ORA5 PO (08:50)
[2019-07-09] MEDS ORDERED: OMEP-110 PO (08:50)
[2019-07-09] MEDS ORDERED: INSU100I11 SQ-INSULIN (08:50)
[2019-07-09] MEDS ORDERED: METO10TA82 PO (08:50)
[2019-07-09] MEDS: DIPHENOXYLATE/ATROPINE TABLET PO PRN (13:13)
[2019-07-09 13:18] VITALS: BP 103/69
[2019-07-09 17:47] VITALS: BP 131/85
== END 2019-07-09 18:37 | disposition home health service (06) | DRG 380 ==
LOC: ED 09:53 → EDIP 10:00 → 4WST 18:00
PROVIDERS: ADMIT Internal Medicine; ATTEND Internal Medicine
PROC: 0DB68ZX Excision of Stomach, Via Natural or Artificial Opening Endoscopic, Diagnostic (ICD-10-PCS; 2019-07-03)
PROC: 0DB58ZX Excision of Esophagus, Via Natural or Artificial Opening Endoscopic, Diagnostic (ICD-10-PCS; 2019-07-03)
PROC: 0DB98ZX Excision of Duodenum, Via Natural or Artificial Opening Endoscopic, Diagnostic (ICD-10-PCS; principal; 2019-07-03 11:00)
DX: K22.11 Ulcer of esophagus with bleeding (principal); E11.10 Type 2 diabetes mellitus with ketoacidosis without coma; E43 Unspecified severe protein-calorie malnutrition; E11.43 Type 2 diabetes mellitus with diabetic autonomic (poly)neuropathy; E78.00 Pure hypercholesterolemia, unspecified; E78.5 Hyperlipidemia, unspecified; E83.42 Hypomagnesemia; E86.0 Dehydration; E87.6 Hypokalemia; G47.00 Insomnia, unspecified; I10 Essential (primary) hypertension; K29.70 Gastritis, unspecified, without bleeding; K31.84 Gastroparesis; E11.21 Type 2 diabetes mellitus with diabetic nephropathy; K52.9 Noninfective gastroenteritis and colitis, unspecified; E11.610 Type 2 diabetes mellitus with diabetic neuropathic arthropathy; K76.0 Fatty (change of) liver, not elsewhere classified; L84 Corns and callosities; N28.89 Other specified disorders of kidney and ureter; N39.41 Urge incontinence; Z79.4 Long term (current) use of insulin; Z87.19 Personal history of other diseases of the digestive system; Z87.442 Personal history of urinary calculi; Z68.29 Body mass index [BMI] 29.0-29.9, adult
CPT/HCPCS: 36415; 74018; 96361; 96365; 96366; 96372; 96375; 96376; 99285; J3490; 80048; 80053; 80307; 81001; 82010; 82803; 82962; 83036; 83690; 83735; 84100; 84443; 84484; 85014; 85018; 85025; 85610; 85730; 87324; 88305; 93005; G0378; J2250; J2405; J2550; J2704; J3010; J3480; C9113; J0360; J1815; J2060; J2765; J3475; J7030; J7040

== ENCOUNTER 2019-10-28 14:13 | Inpatient (IN) | payer BC ==
[~2019-10-28] VITALS: Ht 154.9 cm; Wt 73.8 kg
[~2019-10-28 14:13] MED LIST changes: +CARV6.2512 PO; +INSU100I11 SQ-INSULIN; +METO10TA82 PO; +OMEP-110 PO; +ONDA4TAB7 PO; +SUCR1ORA5 PO
[2019-10-28] MEDS ORDERED: SODIUM CHLORIDE 0.9% 1,000 ML IV ONE ×2 (14:24→15:31)
[2019-10-28] MEDS ORDERED: METOCLOPRAMIDE 5 MG/ML, 2ML ONE (14:25)
[2019-10-28] MEDS ORDERED: PANTOPRAZOLE 40 MG IV ONE (14:25)
[2019-10-28] MEDS ORDERED: SODIUM CHLORIDE FLUSH 10ML SYR IVF ONE (14:30)
[2019-10-28] MEDS ORDERED: PANTOPRAZOLE 40 MG IV IVPush ONE (14:30)
[2019-10-28] MEDS ORDERED: METOCLOPRAMIDE 5 MG/ML, 2ML IVPush ONE (14:30)
[2019-10-28] MEDS ORDERED: SODIUM CHLORIDE 0.9% 1,000ML IVBOLUS ONE (14:30)
--- NOTE | 2019-10-28 14:30 | NUR ---
COUGH FOR 2 WEEKS THAT HAS RESOLVED PER PT, 4 DAYS VOMITING WITH BRB EMESIS THAT STARTED AT 3 AM TODAY. HX OF GI BLEED IN THE PAST. PT HAD BS OF 276 PER RESMA WITH COFFEE GROUND EMESIS PER [facility]. PT ACTIVELY VOMITING ON ARRIVAL.
[2019-10-28] MEDS ORDERED: UNKNOWN CHOLESTEROL PO (14:46)
[2019-10-28 14:57] LABS: BASOPHILS # (AUTO) 0.01 x10^3/uL (0-0.1); BASOPHILS % (AUTO) 0 % (0-1); EOSINOPHILS # (AUTO) 0.05 x10^3/uL (0-0.4); EOSINOPHILS % (AUTO) 0 % (1-7); LYMPHOCYTES # (AUTO) 1.52 x10^3/uL (1-3.4); LYMPHOCYTES % (AUTO) 11 % (22-44); MD NO; MEAN CORPUSCULAR HEMOGLOBIN 24.4 pg (27.0-34.8); MEAN CORPUSCULAR HGB CONC 32.4 g/dL (32.4-35.8); MEAN CORPUSCULAR VOLUME 75.4 fL (80-100); MEAN PLATELET VOLUME 8.9 fL (7.4-10.4); MONOCYTES # (AUTO) 0.17 x10^3/uL (0.2-0.8); MONOCYTES % (AUTO) 1 % (2-9); NEUTROPHILS # (AUTO) 12.23 x10^3/uL (1.8-6.8); NEUTROPHILS % (AUTO) 88 % (42-75); PLATELET COUNT 362 x10^3/uL (130-400); RED BLOOD COUNT 5.64 x10^6/uL (3.82-5.3)
[2019-10-28 15:09] LABS: ALANINE AMINOTRANSFERASE 24 U/L (12-78); ALBUMIN 3.8 g/dL (3.4-5.0); ANION GAP 10 mmol/L (5-15); CHLORIDE 102 mmol/L (98-107); CREATININE 1.36 mg/dL (0.55-1.02)
[2019-10-28 15:12] LABS: ALKALINE PHOSPHATASE 96 U/L (45-117); BILIRUBIN,TOTAL 0.4 mg/dL (0.2-1.0); TOTAL PROTEIN 9.2 g/dL (6.4-8.2)
[2019-10-28 15:13] LABS: ACETONE, SERUM Moderate(40mg/dL) (Negative)
--- NOTE | 2019-10-28 15:30 | NUR ---
PT REPORTS SHE IS FEELING BETTER . DR. JIMENES AT BEDSIDE. PT TO BE ADMITTED.
[2019-10-28] MEDS ORDERED: SODIUM CHLORIDE FLUSH 10ML SYR IVF PRN (16:00)
[2019-10-28] MEDS ORDERED: ONDANSETRON ODT 4 MG PO PRN (17:00)
[2019-10-28] MEDS ORDERED: LABETALOL 5MG/ML, 20ML IVPush PRN (17:00)
[2019-10-28] MEDS ORDERED: GUAIFENESIN/DM 200-20MG, 10ML UDC PO PRN (17:00)
[2019-10-28] MEDS ORDERED: hydrALAzine 20 MG/ML, 1ML IVPush PRN (17:00)
[2019-10-28] MEDS ORDERED: TRAZODONE 50MG TABLET PO PRN (17:00)
[2019-10-28] MEDS ORDERED: LIDODERM 5% PATCH TD PRN (17:00)
[2019-10-28] MEDS ORDERED: METOCLOPRAMIDE 5 MG/ML, 2ML IVPush PRN (17:00)
[2019-10-28] MEDS ORDERED: ACETAMINOPHEN 325 MG TABLET PO PRN (17:00)
[2019-10-28 17:25] LABS: INTERNATIONAL NORMALIZED RATIO 1.08 (0.93-1.1); PROTHROMBIN TIME 11.5 Seconds (9.6-11.5)
[2019-10-28 17:34] LABS: FREE T4 (FREE THYROXINE) 1.42 ng/dL (0.76-1.46)
[2019-10-28 18:07] VITALS: BP 162/93
[2019-10-28 18:09] VITALS: BP 162/93
[2019-10-28 18:31] LABS: HCT (SEDRATE) 42.5 % (34.6-47.8)
[2019-10-28] MEDS: SUCRALFATE 1 GM/10 ML UDC PO SCH ×3 (18:39→22:01)
[2019-10-28] MEDS: CARVEDILOL 6.25 MG TABLET PO SCH (18:40)
[2019-10-28] MEDS: METOCLOPRAMIDE 10MG TABLET PO SCH ×2 (18:41→22:01)
[2019-10-28] MEDS: ENOXAPARIN 40 MG/0.4 ML SQ SCH ×2 (18:41→22:01)
[2019-10-28] MEDS: SODIUM CHLORIDE 0.9% 1,000 ML IV SCH (18:41)
[2019-10-28 18:58] VITALS: BP 152/87
[2019-10-28] MEDS: PROMETHAZINE 25 MG/ML, 1ML IM PRN (21:07)
[2019-10-28] MEDS: PANTOPRAZOLE 40 MG IV IVPush SCH (22:00)
[2019-10-28] MEDS: INSULIN GLARGINE 100 UNITS/ML, PEN SQ-INSULIN SCH (22:02)
[2019-10-28] MEDS: INSULIN LISPRO 100 UNITS/ML, PEN SQ-INSULIN SCH (22:02)
[2019-10-28 22:31] LABS: BASOPHILS # (AUTO) 0.04 x10^3/uL (0-0.1); BASOPHILS % (AUTO) 0 % (0-1); EOSINOPHILS % (AUTO) 0 % (1-7); LYMPHOCYTES # (AUTO) 1.64 x10^3/uL (1-3.4); LYMPHOCYTES % (AUTO) 14 % (22-44); MD NO; MEAN CORPUSCULAR HEMOGLOBIN 24.4 pg (27.0-34.8); MEAN CORPUSCULAR VOLUME 76.2 fL (80-100); MEAN PLATELET VOLUME 8.4 fL (7.4-10.4); MONOCYTES # (AUTO) 0.45 x10^3/uL (0.2-0.8); MONOCYTES % (AUTO) 4 % (2-9); NEUTROPHILS # (AUTO) 9.65 x10^3/uL (1.8-6.8); NEUTROPHILS % (AUTO) 82 % (42-75); PLATELET COUNT 302 x10^3/uL (130-400); RED CELL DISTRIBUTION WIDTH 15.3 % (9.6-15.2)
[2019-10-28 23:18] LABS: CHLORIDE,URINE RANDOM 48 mmol/L; POTASSIUM,URINE RANDOM 85 mmol/L; SODIUM,URINE RANDOM 61 mmol/L
[2019-10-28 23:32] LABS: MICROSCOPIC INDICATED
[2019-10-28 23:55] LABS: CULTURE INDICATED? NO
[2019-10-29 00:28] VITALS: BP 123/73
[2019-10-29] MEDS: PROMETHAZINE 25 MG/ML, 1ML IM PRN ×3 (02:33→13:40)
[2019-10-29] MEDS: SODIUM CHLORIDE 0.9% 1,000 ML IV SCH (02:34)
[2019-10-29 04:56] LABS: BASOPHILS # (AUTO) 0.03 x10^3/uL (0-0.1); BASOPHILS % (AUTO) 0 % (0-1); EOSINOPHILS # (AUTO) 0.09 x10^3/uL (0-0.4); EOSINOPHILS % (AUTO) 1 % (1-7); LYMPHOCYTES # (AUTO) 2.33 x10^3/uL (1-3.4); LYMPHOCYTES % (AUTO) 21 % (22-44); MD NO; MEAN CORPUSCULAR HEMOGLOBIN 24.4 pg (27.0-34.8); MEAN CORPUSCULAR VOLUME 76.1 fL (80-100); MONOCYTES # (AUTO) 0.81 x10^3/uL (0.2-0.8); MONOCYTES % (AUTO) 7 % (2-9); NEUTROPHILS # (AUTO) 7.69 x10^3/uL (1.8-6.8); NEUTROPHILS % (AUTO) 70 % (42-75); PLATELET COUNT 269 x10^3/uL (130-400); RED BLOOD COUNT 4.61 x10^6/uL (3.82-5.3); RED CELL DISTRIBUTION WIDTH 15.3 % (9.6-15.2)
[2019-10-29 05:04] LABS: ALANINE AMINOTRANSFERASE 17 U/L (12-78); ALBUMIN 3.1 g/dL (3.4-5.0); ANION GAP 8 mmol/L (5-15); CALCIUM 9.1 mg/dL (8.5-10.1); CHLORIDE 107 mmol/L (98-107); CREATININE 1.07 mg/dL (0.55-1.02)
[2019-10-29 05:06] LABS: ALKALINE PHOSPHATASE 76 U/L (45-117); BILIRUBIN,TOTAL 0.6 mg/dL (0.2-1.0); TOTAL PROTEIN 7.6 g/dL (6.4-8.2)
[2019-10-29 05:40] VITALS: BP 152/94
[2019-10-29] MEDS: SUCRALFATE 1 GM/10 ML UDC PO SCH ×4 (05:40→20:45)
[2019-10-29] MEDS: CARVEDILOL 6.25 MG TABLET PO SCH ×2 (05:41→17:12)
[2019-10-29] MEDS: METOCLOPRAMIDE 10MG TABLET PO SCH ×4 (05:41→20:44)
[2019-10-29 07:22] VITALS: BP 174/100
[2019-10-29 07:37] VITALS: BP 195/105
[2019-10-29] MEDS: INSULIN LISPRO 100 UNITS/ML, PEN SQ-INSULIN SCH ×4 (08:27→20:45)
[2019-10-29] MEDS: PANTOPRAZOLE 40 MG IV IVPush SCH ×2 (08:28→20:45)
[2019-10-29] MEDS: LISINOPRIL 40 MG TABLET PO SCH (08:28)
[2019-10-29] MEDS ORDERED: MAGNESIUM SULFATE PMX 2GM/50ML 50 ML IV ONE (11:30)
[2019-10-29] MEDS ORDERED: POTASSIUM CHLORIDE 20 MEQ TAB.ER.PRT PO ONE (11:30)
[2019-10-29 12:54] VITALS: BP 103/68
[2019-10-29 19:19] VITALS: BP 134/74
[2019-10-29] MEDS: INSULIN GLARGINE 100 UNITS/ML, PEN SQ-INSULIN SCH (20:46)
[2019-10-30 00:49] VITALS: BP 108/71
[2019-10-30 05:40] LABS: ALBUMIN 3.1 g/dL (3.4-5.0); ANION GAP 6 mmol/L (5-15); CALCIUM 9.3 mg/dL (8.5-10.1); CHLORIDE 105 mmol/L (98-107)
[2019-10-30 05:41] LABS: BASOPHILS # (AUTO) 0.04 x10^3/uL (0-0.1); BASOPHILS % (AUTO) 0 % (0-1); EOSINOPHILS # (AUTO) 0.16 x10^3/uL (0-0.4); EOSINOPHILS % (AUTO) 2 % (1-7); LYMPHOCYTES # (AUTO) 2.62 x10^3/uL (1-3.4); LYMPHOCYTES % (AUTO) 31 % (22-44); MD NO; MEAN CORPUSCULAR HEMOGLOBIN 24.2 pg (27.0-34.8); MEAN CORPUSCULAR HGB CONC 31.6 g/dL (32.4-35.8); MEAN CORPUSCULAR VOLUME 76.4 fL (80-100); MEAN PLATELET VOLUME 8.9 fL (7.4-10.4); MONOCYTES # (AUTO) 0.49 x10^3/uL (0.2-0.8); MONOCYTES % (AUTO) 6 % (2-9); NEUTROPHILS # (AUTO) 5.14 x10^3/uL (1.8-6.8); NEUTROPHILS % (AUTO) 61 % (42-75); PLATELET COUNT 246 x10^3/uL (130-400); RED BLOOD COUNT 4.78 x10^6/uL (3.82-5.3); RED CELL DISTRIBUTION WIDTH 15.3 % (9.6-15.2)
[2019-10-30 05:44] LABS: ALANINE AMINOTRANSFERASE 22 U/L (12-78); ALKALINE PHOSPHATASE 76 U/L (45-117); BILIRUBIN,TOTAL 0.5 mg/dL (0.2-1.0); CREATININE 0.96 mg/dL (0.55-1.02); TOTAL PROTEIN 7.5 g/dL (6.4-8.2)
[2019-10-30 07:14] VITALS: BP 127/78
[2019-10-30] MEDS: LISINOPRIL 40 MG TABLET PO SCH (08:30)
[2019-10-30] MEDS: METOCLOPRAMIDE 10MG TABLET PO SCH ×4 (08:30→20:57)
[2019-10-30] MEDS: CARVEDILOL 6.25 MG TABLET PO SCH ×2 (08:30→17:03)
[2019-10-30] MEDS: SUCRALFATE 1 GM/10 ML UDC PO SCH ×4 (08:30→20:56)
[2019-10-30] MEDS: PANTOPRAZOLE 40 MG IV IVPush SCH (08:30)
[2019-10-30] MEDS: INSULIN LISPRO 100 UNITS/ML, PEN SQ-INSULIN SCH ×4 (08:31→20:58)
[2019-10-30 12:52] VITALS: BP 124/79
[2019-10-30] MEDS: OMEPRAZOLE 20 MG CAPSULE.DR PO SCH (17:02)
[2019-10-30 19:43] VITALS: BP 109/63
[2019-10-30] MEDS: INSULIN GLARGINE 100 UNITS/ML, PEN SQ-INSULIN SCH (20:57)
[2019-10-31 01:27] VITALS: BP 115/68
[2019-10-31 05:07] LABS: ANION GAP 5 mmol/L (5-15); CALCIUM 9.3 mg/dL (8.5-10.1); CHLORIDE 103 mmol/L (98-107); CREATININE 0.94 mg/dL (0.55-1.02)
[2019-10-31] MEDS: OMEPRAZOLE 20 MG CAPSULE.DR PO SCH (05:11)
[2019-10-31 05:16] LABS: % IRON SATURATION 11 % (20-55); IRON LEVEL 33 mcg/dL (50-170); TOTAL IRON BINDING CAPACITY 302 mcg/dL (250-450)
[2019-10-31 06:58] VITALS: BP 153/92
[2019-10-31] MEDS: SUCRALFATE 1 GM/10 ML UDC PO SCH ×2 (07:38→11:10)
[2019-10-31] MEDS: CARVEDILOL 6.25 MG TABLET PO SCH (08:04)
[2019-10-31] MEDS: METOCLOPRAMIDE 10MG TABLET PO SCH ×2 (08:06→11:11)
[2019-10-31] MEDS: INSULIN LISPRO 100 UNITS/ML, PEN SQ-INSULIN SCH ×2 (08:07→12:09)
[2019-10-31] MEDS: LISINOPRIL 40 MG TABLET PO SCH (08:10)
[2019-10-31] MEDS ORDERED: POTASSIUM CHLORIDE 20 MEQ TAB.ER.PRT PO ONE (11:00)
[2019-10-31] MEDS ORDERED: SUCR1ORA5 PO (11:46)
[2019-10-31] MEDS ORDERED: OMEP-110 PO (11:46)
[2019-10-31] MEDS ORDERED: METO10TA2 PO (11:46)
[2019-10-31 12:51] VITALS: BP 145/83
== END 2019-10-31 15:03 | disposition home or self-care (01) | DRG 73 ==
LOC: ED 14:54 → EDIP 15:31 → 4WST 17:50
PROVIDERS: ADMIT Internal Medicine; ATTEND Internal Medicine
DX: E11.43 Type 2 diabetes mellitus with diabetic autonomic (poly)neuropathy (principal); J96.90 Respiratory failure, unspecified, unspecified whether with hypoxia or hypercapnia; N17.9 Acute kidney failure, unspecified; E78.5 Hyperlipidemia, unspecified; I10 Essential (primary) hypertension; E78.00 Pure hypercholesterolemia, unspecified; E86.0 Dehydration; D72.829 Elevated white blood cell count, unspecified; E87.6 Hypokalemia; E83.42 Hypomagnesemia; K30 Functional dyspepsia; T73.0XXA Starvation, initial encounter; X58.XXXA Exposure to other specified factors, initial encounter; K21.9 Gastro-esophageal reflux disease without esophagitis; E11.65 Type 2 diabetes mellitus with hyperglycemia; K31.84 Gastroparesis; K76.0 Fatty (change of) liver, not elsewhere classified; Z88.0 Allergy status to penicillin; Z88.8 Allergy status to other drugs, medicaments and biological substances; Z91.013 Allergy to seafood; Z83.49 Family history of other endocrine, nutritional and metabolic diseases; Z83.3 Family history of diabetes mellitus; Z79.4 Long term (current) use of insulin; Z79.899 Other long term (current) drug therapy
CPT/HCPCS: 36415; 71045; 78264; 80048; 80053; 81001; 82010; 82436; 82728; 82800; 82962; 83036; 83540; 83550; 83690; 83735; 84100; 84133; 84300; 84439; 84443; 85025; 85610; 85651; 85730; 86850; 86900; 93005; 99285; G0378; J1650; J2550; Q0162; A9541; C9113; J0360; J1815; J2765; J3475; J7030

== ENCOUNTER 2021-01-24 13:50 | Inpatient (IN) | payer BC ==
[~2021-01-24] VITALS: Ht 154.9 cm; Wt 100.7 kg
[~2021-01-24 13:50] MED LIST changes: -LISI40TA PO; +LISI40TA9 PO; +METO10TA2 PO; +UNKNOWN CHOLESTEROL PO
[2021-01-24] MEDS ORDERED: ONDANSETRON ODT 4 MG ONE (14:21)
[2021-01-24] MEDS ORDERED: ACETAMINOPHEN 500 MG TABLET ONE (14:21)
--- NOTE | 2021-01-24 14:23 | NUR ---
PT MEDICATED IN TRIAGE PER EMAR.
[2021-01-24] MEDS ORDERED: SODIUM CHLORIDE 0.9% 1,000ML IVBOLUS ONE (14:30)
[2021-01-24] MEDS ORDERED: ACETAMINOPHEN 500 MG TABLET PO ONE (14:30)
[2021-01-24] MEDS ORDERED: ONDANSETRON ODT 4 MG PO ONE (14:30)
[2021-01-24 15:04] LABS: BASOPHILS % (AUTO) 0 % (0-1); EOSINOPHILS % (AUTO) 0 % (1-7); LYMPHOCYTES % (AUTO) 6 % (22-44); MEAN CORPUSCULAR HEMOGLOBIN 24.6 pg (27.0-34.8); MEAN CORPUSCULAR HGB CONC 31.8 g/dL (32.4-35.8); MEAN PLATELET VOLUME 8.6 fL (7.4-10.4); MONOCYTES % (AUTO) 7 % (2-9); NEUTROPHILS % (AUTO) 87 % (42-75); PLATELET COUNT 299 x10^3/uL (130-400); RED BLOOD COUNT 3.81 x10^6/uL (3.82-5.3); RED CELL DISTRIBUTION WIDTH 13.8 % (9.6-15.2)
[2021-01-24 15:14] LABS: ALANINE AMINOTRANSFERASE 38 U/L (12-78); ALBUMIN 2.7 g/dL (3.4-5.0); ANION GAP 9 mmol/L (5-15); CALCIUM 8.9 mg/dL (8.5-10.1); CHLORIDE 101 mmol/L (98-107); CREATININE 2.14 mg/dL (0.55-1.02)
--- NOTE | 2021-01-24 15:15 | NUR ---
COMPANY CONTROLLER; PT TO ROOM FROM LOBBY VIA W/C
[2021-01-24 15:16] LABS: ALKALINE PHOSPHATASE 84 U/L (45-117); BILIRUBIN,TOTAL 0.5 mg/dL (0.2-1.0); TOTAL PROTEIN 7.3 g/dL (6.4-8.2)
--- NOTE | 2021-01-24 15:47 | NUR ---
ERMD AT BEDSIDE FOR EVALUATION
[2021-01-24] MEDS ORDERED: CEFAZOLIN PMX 1GM/50ML 50 ML IV ONE (16:00)
[2021-01-24] MEDS ORDERED: VANCOMYCIN PER PHARMACY MC PRN ×2 (16:00→16:30)
[2021-01-24] MEDS ORDERED: CEFAZOLIN PMX 1GM/50ML 50 ML ONE (16:08)
--- NOTE | 2021-01-24 16:16 | NUR ---
DR VILLALTA AT BEDSIDE FOR EVALUATION
[2021-01-24] MEDS ORDERED: VANCOMYCIN 2,300 MG in SODIUM CHLORIDE 0.9% 500 ML IV ONE (16:30)
[2021-01-24] MEDS ORDERED: PROMETHAZINE 25 MG/ML, 1ML IM PRN ×2 (16:30→19:30)
[2021-01-24] MEDS ORDERED: ONDANSETRON ODT 4 MG PO PRN (16:30)
[2021-01-24] MEDS ORDERED: ONDANSETRON 2MG/ML, 2ML IVPush PRN (16:30)
[2021-01-24] MEDS ORDERED: BACLOFEN 10 MG TABLET PO PRN (16:30)
[2021-01-24] MEDS ORDERED: HEPARIN 5,000 UNITS/ML, 1ML SQ SCH (16:30)
[2021-01-24] MEDS ORDERED: BUTALB/APAP/CAFFEINE 50MG/325MG/40MG PO PRN ×2 (16:30)
[2021-01-24] MEDS ORDERED: LABETALOL 5MG/ML, 20ML IVPush PRN (16:30)
[2021-01-24] MEDS ORDERED: OXYcodone/APAP 5/325MG TABLET PO PRN (16:30)
[2021-01-24] MEDS ORDERED: GUAIFENESIN/DM 200-20MG, 10ML UDC PO PRN (16:30)
[2021-01-24] MEDS ORDERED: hydrALAzine 20 MG/ML, 1ML IVPush PRN (16:30)
[2021-01-24] MEDS ORDERED: SODIUM CHLORIDE 0.9% 1,000ML IV ONE (16:30)
--- NOTE | 2021-01-24 16:55 | NUR ---
RECIEVEING RN AWARE OF NEEDED UA AND GEOFFREY
--- NOTE | 2021-01-24 16:55 | NUR ---
REPORT CALLED TO PATRICIA VELÁSQUEZ
[2021-01-24 17:18] LABS: HCT (SEDRATE) 29.5 % (34.6-47.8)
[2021-01-24 17:56] VITALS: BP 115/69
[2021-01-24] MEDS ORDERED: AMPICILLIN/SULBACTAM 3 GM in SODIUM CHLORIDE 0.9% 100 ML IV SCH (18:00)
[2021-01-24] MEDS: CARVEDILOL 6.25 MG TABLET PO SCH (18:17)
[2021-01-24 19:04] VITALS: BP 123/72
[2021-01-24] MEDS ORDERED: PHARMACOKINETIC CONSULTATION MC ONE (19:30)
[2021-01-24] MEDS ORDERED: PHARMACOKINETIC MONITORING MC PRN (19:30)
[2021-01-24] MEDS: GABAPENTIN 300 MG CAPSULE PO PRN (20:34)
[2021-01-24] MEDS: ACETAMINOPHEN 325 MG TABLET PO PRN (20:34)
[2021-01-24] MEDS: METOCLOPRAMIDE 10MG TABLET PO SCH (20:35)
[2021-01-24] MEDS: MELATONIN 5 MG TABLET PO SCH (20:35)
[2021-01-24] MEDS: INSULIN LISPRO 100 UNITS/ML, PEN SQ-INSULIN SCH (20:46)
[2021-01-25 01:50] VITALS: BP 113/71
[2021-01-25] MEDS: ACETAMINOPHEN 325 MG TABLET PO PRN ×4 (01:57→18:47)
[2021-01-25] MEDS: CARVEDILOL 6.25 MG TABLET PO SCH (05:19)
[2021-01-25 05:23] VITALS: BP 101/63
[2021-01-25 05:26] LABS: BASOPHILS % (AUTO) 0 % (0-1); EOSINOPHILS % (AUTO) 0 % (1-7); LYMPHOCYTES % (AUTO) 11 % (22-44); MEAN CORPUSCULAR HEMOGLOBIN 24.7 pg (27.0-34.8); MEAN CORPUSCULAR HGB CONC 31.7 g/dL (32.4-35.8); MEAN PLATELET VOLUME 8.7 fL (7.4-10.4); MONOCYTES % (AUTO) 7 % (2-9); NEUTROPHILS % (AUTO) 82 % (42-75); PLATELET COUNT 260 x10^3/uL (130-400); RED BLOOD COUNT 3.27 x10^6/uL (3.82-5.3)
[2021-01-25 05:33] LABS: ALBUMIN 2.2 g/dL (3.4-5.0); ANION GAP 9 mmol/L (5-15); CALCIUM 8.1 mg/dL (8.5-10.1); CHLORIDE 104 mmol/L (98-107)
[2021-01-25 05:39] LABS: ALANINE AMINOTRANSFERASE 32 U/L (12-78); ALKALINE PHOSPHATASE 75 U/L (45-117); BILIRUBIN,TOTAL 0.4 mg/dL (0.2-1.0); CREATININE 2.42 mg/dL (0.55-1.02); TOTAL PROTEIN 6.2 g/dL (6.4-8.2); VANCOMYCIN,RANDOM 26.7 mcg/mL
[2021-01-25] MEDS ORDERED: LISI40TA9 PO (05:41)
[2021-01-25 06:32] VITALS: BP 102/60
[2021-01-25] MEDS: INSULIN LISPRO 100 UNITS/ML, PEN SQ-INSULIN SCH ×4 (07:00→21:39)
[2021-01-25] MEDS: SENNA/DOCUSATE TABLET PO SCH (07:40)
[2021-01-25] MEDS: METOCLOPRAMIDE 10MG TABLET PO SCH ×4 (07:45→20:58)
[2021-01-25] MEDS ORDERED: LISINOPRIL 40 MG TABLET PO SCH (09:00)
[2021-01-25] MEDS ORDERED: SODIUM CHLORIDE 0.9% 1,000ML IVBOLUS ONE (10:30)
[2021-01-25] MEDS ORDERED: CEFTRIAXONE 1,000 MG in DEXTROSE 5% 50 ML IVPB SCH (12:00)
[2021-01-25 13:32] VITALS: BP 105/57
[2021-01-25] MEDS ORDERED: CYANOCOBALAMIN 1,000 MCG/ML, 1ML IM ONE (14:00)
[2021-01-25 14:40] LABS: % IRON SATURATION 8 % (20-55); IRON LEVEL 15 mcg/dL (50-170); TOTAL IRON BINDING CAPACITY 199 mcg/dL (250-450)
[2021-01-25] MEDS: ASCORBIC ACID 500 MG TABLET PO SCH (16:44)
[2021-01-25] MEDS ORDERED: VANCOMYCIN 1,500 MG in SODIUM CHLORIDE 0.9% 250 ML IV ONE (17:00)
[2021-01-25] MEDS ORDERED: VANCOMYCIN 1,600 MG in SODIUM CHLORIDE 0.9% 250 ML IV SCH (18:00)
[2021-01-25] MEDS ORDERED: GADOTERATE 10 MMOL/20ML SYR ONE (18:28)
[2021-01-25] MEDS: CARVEDILOL 3.125 MG TABLET PO SCH (18:47)
[2021-01-25 18:58] VITALS: BP 132/70
[2021-01-25] MEDS: LISINOPRIL 40 MG TABLET PO SCH (20:58)
[2021-01-25] MEDS: MELATONIN 5 MG TABLET PO SCH (20:58)
[2021-01-25] MEDS: GABAPENTIN 300 MG CAPSULE PO PRN (21:39)
[2021-01-26] MEDS ORDERED: PHARMACOKINETIC MONITORING MC PRN (02:30)
[2021-01-26] MEDS ORDERED: VANCOMYCIN PER PHARMACY MC PRN ×2 (02:30→03:30)
[2021-01-26] MEDS ORDERED: PHARMACOKINETIC CONSULTATION MC ONE (02:30)
[2021-01-26] MEDS: ACETAMINOPHEN 325 MG TABLET PO PRN ×4 (02:46→19:54)
[2021-01-26 02:55] VITALS: BP 122/66
[2021-01-26 04:26] LABS: MICROSCOPIC INDICATED
[2021-01-26] MEDS: CARVEDILOL 3.125 MG TABLET PO SCH ×2 (05:22→16:30)
[2021-01-26] MEDS: OMEPRAZOLE 20 MG CAPSULE.DR PO SCH (05:22)
[2021-01-26 05:24] VITALS: BP 151/75
[2021-01-26 07:35] VITALS: BP 131/78
[2021-01-26] MEDS: ZINC SULFATE 220 MG CAPSULE PO SCH (07:43)
[2021-01-26] MEDS: INSULIN LISPRO 100 UNITS/ML, PEN SQ-INSULIN SCH ×4 (07:43→20:02)
[2021-01-26] MEDS: ASCORBIC ACID 500 MG TABLET PO SCH ×2 (07:43→16:30)
[2021-01-26] MEDS: SENNA/DOCUSATE TABLET PO SCH (07:44)
[2021-01-26] MEDS: MULTIVITS,STRESS FORMULA 1 TABLET PO SCH (07:45)
[2021-01-26] MEDS: CHOLECALCIFEROL 5,000u TAB PO SCH (07:45)
[2021-01-26] MEDS: METOCLOPRAMIDE 10MG TABLET PO SCH ×4 (07:45→20:02)
[2021-01-26 18:36] VITALS: BP 169/80
[2021-01-26 19:45] VITALS: BP 149/84
[2021-01-26] MEDS: SULFAMETH./TRIMETHOPRIM DS 800MG/160MG TABLET PO SCH (19:54)
[2021-01-26] MEDS: LISINOPRIL 40 MG TABLET PO SCH (19:54)
[2021-01-26] MEDS: MELATONIN 5 MG TABLET PO SCH (19:54)
[2021-01-27 00:54] VITALS: BP 150/82
[2021-01-27 05:59] LABS: BASOPHILS % (AUTO) 0 % (0-1); EOSINOPHILS % (AUTO) 1 % (1-7); LYMPHOCYTES % (AUTO) 11 % (22-44); MEAN CORPUSCULAR HGB CONC 32.5 g/dL (32.4-35.8); MEAN PLATELET VOLUME 8.1 fL (7.4-10.4); MONOCYTES % (AUTO) 9 % (2-9); NEUTROPHILS % (AUTO) 78 % (42-75); PLATELET COUNT 329 x10^3/uL (130-400); RED BLOOD COUNT 3.26 x10^6/uL (3.82-5.3); RED CELL DISTRIBUTION WIDTH 14.3 % (9.6-15.2)
[2021-01-27 06:06] LABS: ALBUMIN 2.1 g/dL (3.4-5.0); ANION GAP 10 mmol/L (5-15); CALCIUM 8.5 mg/dL (8.5-10.1); CHLORIDE 104 mmol/L (98-107)
[2021-01-27 06:18] VITALS: BP 132/77
[2021-01-27] MEDS: CARVEDILOL 3.125 MG TABLET PO SCH (06:19)
[2021-01-27] MEDS: OMEPRAZOLE 20 MG CAPSULE.DR PO SCH (06:19)
[2021-01-27] MEDS: METOCLOPRAMIDE 10MG TABLET PO SCH ×2 (07:08→11:26)
[2021-01-27] MEDS: ASCORBIC ACID 500 MG TABLET PO SCH (07:52)
[2021-01-27] MEDS: SULFAMETH./TRIMETHOPRIM DS 800MG/160MG TABLET PO SCH (07:52)
[2021-01-27] MEDS: INSULIN LISPRO 100 UNITS/ML, PEN SQ-INSULIN SCH ×2 (07:52→11:25)
[2021-01-27] MEDS: MULTIVITS,STRESS FORMULA 1 TABLET PO SCH (07:52)
[2021-01-27] MEDS: CHOLECALCIFEROL 5,000u TAB PO SCH (07:52)
[2021-01-27] MEDS: ZINC SULFATE 220 MG CAPSULE PO SCH (07:52)
[2021-01-27] MEDS: ACETAMINOPHEN 325 MG TABLET PO PRN ×2 (07:55→14:46)
[2021-01-27] MEDS: SENNA/DOCUSATE TABLET PO SCH (07:58)
[2021-01-27] MEDS ORDERED: CARV6.2512 PO (09:32)
[2021-01-27] MEDS ORDERED: SULF-23 PO (09:32)
[2021-01-27 13:58] VITALS: BP 128/64
== END 2021-01-27 15:46 | disposition home or self-care (01) | DRG 871 ==
LOC: ED 14:20 → EDIP 17:06 → 3N 17:09
PROVIDERS: ADMIT Hospitalist; ATTEND Hospitalist
PROC: 0T9B70Z Drainage of Bladder with Drainage Device, Via Natural or Artificial Opening (ICD-10-PCS; principal; 2021-01-26)
DX: A41.9 Sepsis, unspecified organism (principal); N17.0 Acute kidney failure with tubular necrosis; L03.116 Cellulitis of left lower limb; D68.0 Von Willebrand disease; E44.1 Mild protein-calorie malnutrition; E87.1 Hypo-osmolality and hyponatremia; Z68.41 Body mass index [BMI] 40.0-44.9, adult; D50.9 Iron deficiency anemia, unspecified; E11.43 Type 2 diabetes mellitus with diabetic autonomic (poly)neuropathy; E11.628 Type 2 diabetes mellitus with other skin complications; E55.9 Vitamin D deficiency, unspecified; I10 Essential (primary) hypertension; K31.84 Gastroparesis; K52.9 Noninfective gastroenteritis and colitis, unspecified; L02.92 Furuncle, unspecified; M20.12 Hallux valgus (acquired), left foot; R65.20 Severe sepsis without septic shock; Z88.8 Allergy status to other drugs, medicaments and biological substances; Z91.013 Allergy to seafood
CPT/HCPCS: 36415; 80053; 80069; 80202; 81001; 82962; 83036; 83540; 83550; 83605; 83735; 84145; 85025; 85651; 87040; 87070; 87075; 87077; 87086; 87147; 87186; 87205; 96361; 96365; G0378; J0690; J0696; J2405; J3370; Q0162; A9575; J1815; J3420; J7030; J7040; J7050; Q0181